=== PATIENT | male | born 1980 | race Caucasian/White ===

== ENCOUNTER 2019-12-26 17:32 | Emergency (ER) | payer OTHER, BC ==
[~2019-12-26] VITALS: Ht 170.2 cm; Wt 68.0 kg
[2019-12-26 17:41] VITALS: BP 128/88
[2019-12-26] MEDS ORDERED: CEPH500C2 PO (19:59)
[2019-12-26] MEDS ORDERED: DOXY100C77 PO (20:00)
== END 2019-12-26 20:36 | disposition home or self-care (01) ==
LOC: ER 17:33
DX: L03.116 Cellulitis of left lower limb (principal)
CPT/HCPCS: 93971; 99284

== ENCOUNTER 2021-09-16 23:03 | Emergency (ER) | payer OTHER, BC ==
[~2021-09-16] VITALS: Ht 170.2 cm; Wt 68.2 kg
[2021-09-16] MEDS ORDERED: metoclopramide 5 mg/ml inj IV ONE (23:45)
[2021-09-17] MEDS ORDERED: NALO4SPR BOTHNARES (03:20)
[2021-09-17 04:17] VITALS: BP 95/69
== END 2021-09-17 04:39 | disposition home or self-care (01) ==
LOC: ER 23:03
DX: T40.411A Poisoning by fentanyl or fentanyl analogs, accidental (unintentional), initial encounter (principal); F14.90 Cocaine use, unspecified, uncomplicated; Z72.89 Other problems related to lifestyle; Z79.899 Other long term (current) drug therapy; Y92.89 Other specified places as the place of occurrence of the external cause
CPT/HCPCS: 96374; 99284; J2765

== ENCOUNTER 2025-04-25 20:02 | Emergency (ER) | payer OTHER, BC ==
[~2025-04-25] VITALS: Ht 170.2 cm; Wt 165.0 kg
[~2025-04-25 20:02] MED LIST: NALO4SPR BOTHNARES
[2025-04-25 20:08] VITALS: BP 124/86; PULSE 83; RESP 16; TEMP 97.8; O2SAT 94
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
== END 2025-04-25 20:42 ==
LOC: ER 20:03
DX: Z00.00 Encounter for general adult medical examination without abnormal findings (principal); F14.90 Cocaine use, unspecified, uncomplicated; Z79.899 Other long term (current) drug therapy; Z72.89 Other problems related to lifestyle; V43.52XA Car driver injured in collision with other type car in traffic accident, initial encounter; Y93.89 Activity, other specified; Y92.89 Other specified places as the place of occurrence of the external cause; Y99.8 Other external cause status
CPT/HCPCS: 99283